=== PATIENT | female | born 1975 | race Caucasian/White ===

== ENCOUNTER 2022-04-02 17:40 | Emergency (ER) | payer BC, OTHER ==
[2022-04-02 17:49] VITALS: TEMP 98.3
--- NOTE | 2022-04-02 18:19 | ED ---
General Adult HPI - General Chief complaint: Neuro Symptoms/Deficit Stated complaint: facial droop Time Seen by Provider: 04/02/22 17:56 Source: patient, family, RN notes reviewed Mode of arrival: wheelchair Limitations: no limitations - History of Present Illness Initial comments: Patient is a pleasant 47-year-old female presenting to the emergency department with concern for right facial droop. Onset was last night. Patient has noticed progressively worsened since that time. Patient now having difficulty closing her right eye. Patient denies loss of sensation. No other area is affected. No history of similar symptoms previously. - Related Data Previous Rx's Medication Instructions Recorded predniSONE [Deltasone] 60 mg PO DAILY #21 tab 04/02/22 valACYclovir HCL [Valtrex] 1 tab PO TID #21 tablet 04/02/22 Allergies Allergy/AdvReac Type Severity Reaction Status Date / Time No Known Allergies Allergy Verified 03/22/15 17:57 Review of Systems ROS Statement: Those systems with pertinent positive or pertinent negative responses have been documented in the HPI. ROS Other: All systems not noted in ROS Statement are negative. Constitutional: Denies: fever Eyes: Reports: as per HPI. Denies: eye pain ENT: Denies: ear pain Respiratory: Denies: cough Cardiovascular: Denies: palpitations Endocrine: Denies: fatigue Gastrointestinal: Denies: abdominal pain Genitourinary: Denies: dysuria Neurological: Reports: as per HPI. Denies: headache, confusion Past Medical History Past Medical History: Diabetes Mellitus, Thyroid Disorder History of Any Multi-Drug Resistant Organisms: None Reported Past Surgical History: Section Past Psychological History: ADD/ADHD Past Alcohol Use History: None Reported Past Drug Use History: None Reported General Exam Limitations: no limitations General appearance: alert, in no apparent distress Head exam: Present: atraumatic, normocephalic Eye exam: Present: normal appearance, PERRL, EOMI, other (Difficulty closing right eyelid) ENT exam: Present: TM's normal bilaterally Neck exam: Present: normal inspection Respiratory exam: Present: normal lung sounds bilaterally Cardiovascular Exam: Present: regular rate, normal rhythm Expanded Peripheral pulses: 2+: Radial (R), Radial (L), Dorsalis Pedis (R), Dorsalis Pedis (L) GI/Abdominal exam: Present: soft. Absent: distended, tenderness Extremities exam: Present: normal inspection Neurological exam: Present: alert, oriented X3, CN II-XII intact. Absent: motor sensory deficit Expanded Neurological exam: Present: protecting the airway Speech: Present: fluid speech Cranial nerves: EOM's Intact: Normal, Facial Sensation: Normal Sensory exam: Upper Extremity Light Touch: Normal, Lower Extremity Light Touch: Normal Motor strength exam: RUE: 5, LUE: 5, RLE: 5 (Slightly limited secondary to chronic right groin pain), LLE: 5 Eye Response: (4) open spontaneously Motor Response: (6) obeys commands Verbal Response: (5) oriented Psychiatric exam: Present: normal affect, normal mood Skin exam: Present: normal color Course Vital Signs 04/02/22 17:43 Temperature 98.3 F Pulse Rate 81 Respiratory 18 Rate Blood Pressure 182/101 O2 Sat by Pulse 97 Oximetry EKG Findings - EKG Results: EKG: interpreted by KALEN, sinus rhythm, normal axis, normal QRS, normal ST/T Medical Decision Making - Medical Decision Making Was pt. sent in by a medical professional or institution (MAR[facility] FERNANDA Booth, CONTAINER FINISHER, urgent care, hospital, or penitentiary...) When possible be specific @ -No Did you speak to anyone other than the patient for history (EMS, parent, family, police, friend...)? What history was obtained from this source @ -Family is present and helps provide history of onset last night Did you review nursing and triage notes (agree or disagree)? Why? @ -I reviewed and agree with nursing and triage notes Were old charts reviewed (outside hosp., previous admission, EMS record, old EKG, old radiological studies, urgent care reports/EKG's, penitentiary records)? Report findings @ -No old charts were reviewed Differential Diagnosis (chest pain, altered mental status, abdominal pain women, abdominal pain men, vaginal bleeding, weakness, fever, dyspnea, syncope, headache, dizziness, GI bleed, back pain, seizure, CVA, palpatations, mental health)? @ -Differential Weakness: Hypoglycemia, shock, sepsis, hyponatremia, anemia, infection, WI, ETOH, adverse medicine reaction, overdose, stroke, this is not meant to be an all-inclusive list. EKG interpreted by me (3pts min.). @ -As above X-rays interpreted by me (1pt min.). @ -None done CT interpreted by me (1pt min.). @ -None done U/S interpreted by me (1pt. min.). @ -None done What testing was considered but not performed or refused? (CT, X-rays, U/S, labs)? Why? @ -Testing felt unlikely however patient was offered CT scanning she does refuse this. What meds were considered but not given or refused? Why? @ -None Did you discuss the management of the patient with other professionals (professionals i.e. , PA, CONTAINER FINISHER, lab, RT, psych nurse, home health care social worker, material handling crew supervisor, teacher, commissioned defence force officer, employment evaluator/case manager)? Give summary @ -No Was smoking cessation discussed for >3mins.? @ -No Was critical care preformed (if so, how long)? @ -No Were there social determinants of health that impacted care today? How? (Homelessness, low income, unemployed, alcoholism, drug addiction, transportation, low edu. Level, literacy, decrease access to med. care, prison, rehab)? @ -No Was there de-escalation of care discussed even if they declined (Discuss DNR or withdrawal of care, Hospice)? DNR status @ -No What co-morbidities impacted this encounter? (DM, HTN, Smoking, COPD, CAD, Cancer, CVA, ARF, Chemo, Hep., AIDS, mental health diagnosis, sleep apnea, morbid obesity)? @ -None Was patient admitted / discharged? Hospital course, mention meds given and route, prescriptions, significant lab abnormalities, going to OR and other pertinent info. @ -Patient made aware of diagnosis. Patient will have prescriptions sent to pharmacy. Undiagnosed new problem with uncertain prognosis? @ -No Drug Therapy requiring intensive monitoring for toxicity (Heparin, Nitro, In sulin, Cardizem)? @ -No Were any procedures done? @ -No Diagnosis/symptom? @ -Stoner's palsy Acute, or Chronic, or Acute on Chronic? @ -Acute Uncomplicated (without systemic symptoms) or Complicated (systemic symptoms)? @ -Uncomplicated at this time Side effects of treatment? @ -No Exacerbation, Progression, or Severe Exacerbation? @ -No Poses a threat to life or bodily function? How? (Chest pain, USA, WI, pneumonia, PE, COPD, DKA, ARF, appy, cholecystitis, CVA, Diverticulitis, Homicidal, Suicidal, threat to staff... and all critical care pts) @ -No Disposition Clinical Impression: Stoner's palsy Disposition: HOME SELF-CARE Condition: Stable Instructions (If sedation given, give patient instructions): Stoner Palsy (ED) Additional Instructions: Prescriptions have been sent to pharmacy. Please do follow-up to primary care physician in the next couple days for recheck. Use Lacri-Lube or similar agent to keep the right eye hydrated at least 4 times daily and prior to going to bed. Tape the right eyelid shut at nighttime. Return for other areas of weakness or concern. Prescriptions: predniSONE [Deltasone] 60 mg PO DAILY #21 tab valACYclovir HCL [Valtrex] 1 tab PO TID #21 tablet Is patient prescribed a controlled substance at d/c from ED?: No Referrals: Alden Gutierrez MD [STAFF PHYSICIAN] - 1-2 days Time of Disposition: 18:17
[2022-04-02 18:47] VITALS: BP 190/91; PULSE 79; RESP 15
== END 2022-04-02 19:01 | disposition home or self-care (01) ==
LOC: EC 17:40
DX: G51.0 Bell's palsy (principal); E11.9 Type 2 diabetes mellitus without complications; F90.9 Attention-deficit hyperactivity disorder, unspecified type
CPT/HCPCS: 93005; 99284

== ENCOUNTER 2022-06-27 22:33 | Emergency (ER) | payer OTHER ==
[2022-06-27 22:38] VITALS: TEMP 98.3
[2022-06-27] MEDS ORDERED: ORPHENADRINE 30 MG/ML 2 ML VIAL IM STA (22:45)
[2022-06-27] MEDS ORDERED: KETOROLAC 15 MG/ML 1 ML VIAL IM STA (22:45)
--- NOTE | 2022-06-27 22:45 | ED ---
Back Pain HPI - General Chief Complaint: Back Pain/Injury Stated Complaint: Back pain - pulled muscles Time Seen by Provider: 06/27/22 22:40 Source: patient, RN notes reviewed Limitations: no limitations - History of Present Illness Initial Comments: Patient is a 47-year-old female presenting to the emergency room with complaints of upper back pain primarily between her shoulder blades. She reports that symptom has been ongoing for approximately 1 week and getting worse. She reports injury to her right inguinal area which is being evaluated by her new primary care provider for orthopedic referral soon; she reports that due to this injury she has been utilizing a walker to ambulate and believes that she may have strained her back muscles while utilizing her walker. She denies any trauma or known injury. She reports the pain is primarily perispinal in the thoracic region made worse by movement. Massage does help at times. She reports having Tylenol 3's for her inguinal pain and utilizing these however she no longer has any of that medication. She has not tried any other medications to help with her symptoms. She denies any numbness and tingling in her upper extremities, range of motion impairment not directly related to pain or upper extremity weakness. She has a past medical history significant for diabetes and hypothyroidism. - Related Data Previous Rx's Medication Instructions Recorded predniSONE [Deltasone] 60 mg PO DAILY #21 tab 04/02/22 valACYclovir HCL [Valtrex] 1 tab PO TID #21 tablet 04/02/22 Amoxicillin 875 mg PO Q12HR #14 tablet 05/09/22 Cyclobenzaprine [Flexeril] 10 mg PO HS PRN #7 tab 05/09/22 Ibuprofen [Motrin] 800 mg PO Q8HR PRN #30 tab 05/09/22 Cyclobenzaprine HCl 10 mg PO TID PRN 7 Days #21 tab 06/27/22 Ibuprofen [Motrin] 800 mg PO Q8H PRN 7 Days #21 tab 06/27/22 Allergies Allergy/AdvReac Type Severity Reaction Status Date / Time No Known Allergies Allergy Verified 06/27/22 22:35 Review of Systems ROS Statement: Those systems with pertinent positive or pertinent negative responses have been documented in the HPI. ROS Other: All systems not noted in ROS Statement are negative. Past Medical History Past Medical History: Diabetes Mellitus, Thyroid Disorder History of Any Multi-Drug Resistant Organisms: None Reported Past Surgical History: Section Past Psychological History: ADD/ADHD Smoking Status: Never smoker Past Alcohol Use History: None Reported Past Drug Use History: None Reported General Exam - General Exam Comments Initial Comments: GENERAL: No acute distress, well developed, well nourished. Obese. HEENT: Normocephalic, atraumatic. Pupils equal, round, reactive to light. Moist mucous membranes. LUNGS: No respiratory distress or use of accessory muscles. HEART: Regular rate.. ABDOMEN: Non-distended. BACK: Normal inspection. Paraspinal spasm noted in the thoracic region and subscapular to right side. No range of motion impairment. EXTREMITIES: No edema. No tenderness. Moves all extremities. NEUROLOGIC: Alert & oriented x 3. CN II-XII grossly intact. PSYCHIATRIC: Normal affect and behavior. DERMATOLOGIC: Skin intact, without rashes or lesions noted. Limitations: no limitations Course Vital Signs 06/27/22 22:35 Temperature 98.3 F Pulse Rate 81 Respiratory 18 Rate Blood Pressure 172/85 O2 Sat by Pulse 97 Oximetry Medical Decision Making - Medical Decision Making Was pt. sent in by a medical professional or institution (, PA, TUBE REBUILDER, urgent care, hospital, or assisted...) When possible be specific @ -No Did you speak to anyone other than the patient for history (EMS, parent, family, police, friend...)? What history was obtained from this source @ -No Did you review nursing and triage notes (agree or disagree)? Why? @ -I reviewed and agree with nursing and triage notes except pain primarily to mid upper back. Were old charts reviewed (outside hosp., previous admission, EMS record, old EKG, old radiological studies, urgent care reports/EKG's, assisted records)? Report findings @ -No old charts were reviewed Differential Diagnosis (chest pain, altered mental status, abdominal pain women, abdominal pain men, vaginal bleeding, weakness, fever, dyspnea, syncope, headache, dizziness, GI bleed, back pain, seizure, CVA, palpatations, mental health, musculoskeletal)? @ -Differential Back Pain: Strain, zoster, cauda equina syndrome, epidural abscess, vertebral osteomyelitis, discitis, fracture, subluxation, disc herniation, DJD, spinal stenosis, dissection, AAA, pancreatitis, peptic ulcer disease, pyelonephritis, kidney stone, this is not meant to be an all-inclusive list. EKG interpreted by me (3pts min.). @ -None done X-rays interpreted by me (1pt min.). @ -None done CT interpreted by me (1pt min.). @ -None done U/S interpreted by me (1pt. min.). @ -None done What testing was considered but not performed or refused? (CT, X-rays, U/S, labs)? Why? @ -None What meds were considered but not given or refused? Why? @ -None Did you discuss the management of the patient with other professionals (professionals i.e. , PA, TUBE REBUILDER, lab, RT, psych nurse, geriatric social worker, customer service representative teller, teacher, appeals officer, spring encaser)? Give summary @ -No Was smoking cessation discussed for >3mins.? @ -No Was critical care preformed (if so, how long)? @ -No Were there social determinants of health that impacted care today? How? (Homelessness, low income, unemployed, alcoholism, drug addiction, transportation, low edu. Level, literacy, decrease access to med. care, care home, rehab)? @ -No Was there de-escalation of care discussed even if they declined (Discuss DNR or withdrawal of care, Hospice)? DNR status @ -No What co-morbidities impacted this encounter? (DM, HTN, Smoking, COPD, CAD, Cancer, CVA, ARF, Chemo, Hep., AIDS, mental health diagnosis, sleep apnea, morbid obesity)? @ -None Was patient admitted / discharged? Hospital course, mention meds given and route, prescriptions, significant lab abnormalities, going to OR and other pertinent info. @ -47-year-old female presenting to the emergency room with complaints of upper mid back pain ongoing for approximately 1 week without any known trauma. She is utilizing her upper extremities to bear weight with a walker due to injury to her right inguinal region. Paraspinal spasms noted on exam. No trauma indicating need for diagnostic imaging or laboratory studies. No radiculopathy. Will give muscle relaxer and Toradol and monitor response. Slight improvement in symptoms with Toradol and muscle relaxer. An increased pain again will give IM morphine. Despite pain no indication for further workup at this time. Will discharge home with muscle relaxer and Tylenol 3 starter pack. Advised to keep upcoming appointment with primary care provider for referral to orthopedist. Range of motion as tolerated encouraged. Questions and concerns answered. Return parameters to the emergency room discussed. Will discharge home in stable condition on muscle relaxer and analgesics to treat upper back pain advising follow-up with primary care provider. Undiagnosed new problem with uncertain prognosis? @ -No Drug Therapy requiring intensive monitoring for toxicity (Heparin, Nitro, Insulin, Cardizem)? @ -No Were any procedures done? @ -No Diagnosis/symptom? @ -Upper back pain Acute, or Chronic, or Acute on Chronic? @ -Acute Uncomplicated (without systemic symptoms) or Complicated (systemic symptoms)? @ -Uncomplicated Side effects of treatment? @ -No Exacerbation, Progression, or Severe Exacerbation? @ -No Poses a threat to life or bodily function? How? (Chest pain, [place], [place], pneumonia, PE, COPD, DKA, ARF, appy, cholecystitis, CVA, Diverticulitis, Homicidal, Suicidal, threat to staff... and all critical care pts) @ -No Case discussed with Dr. Arnett Disposition Clinical Impression: Thoracic back pain Disposition: HOME SELF-CARE Condition: Stable Instructions (If sedation given, give patient instructions): Back Pain (ED) Additional Instructions: Please utilize muscle relaxer along with Tylenol 3 starter pack alternating with ibuprofen prescription as needed for pain. Do not drive or operate machinery until you know how muscle relaxer and Tylenol 3's will affect to. Avoid taking sedative medication at the same time. Range of motion as tolerated encouraged. Please keep your upcoming appointment with your primary care provider as scheduled. Application of heat or ice and 20 minute increments every 2-3 hours may help with pain. Please return to the Emergency Department if symptoms worsen or any other concerns. Prescriptions: Cyclobenzaprine HCl 10 mg PO TID PRN 7 Days #21 tab PRN Reason: Spasms Ibuprofen [Motrin] 800 mg PO Q8H PRN 7 Days #21 tab PRN Reason: Pain Is patient prescribed a controlled substance at d/c from ED?: No Referrals: Vance Machuca MD [Primary Care Provider] - 1-2 days Time of Disposition: 23:37
[2022-06-27] MEDS ORDERED: ACET/COD 300 MG/30 MG STARTER PACK 6 TAB BTL PO STA (23:34)
[2022-06-27] MEDS ORDERED: MORPHINE SULFATE 4 MG/ML SYRINGE IM STA (23:54)
[2022-06-28 00:15] VITALS: BP 150/87; PULSE 64; RESP 17
== END 2022-06-28 00:19 | disposition home or self-care (01) ==
LOC: EC 22:33
DX: M54.6 Pain in thoracic spine (principal); E11.9 Type 2 diabetes mellitus without complications
CPT/HCPCS: 99283; 96372 ×3; J2360; J1885

== ENCOUNTER → 2022-07-31 | Outpatient (CLI) | payer OTHER ==
--- NOTE | 2022-07-31 16:14 | XR ---
EXAMINATION TYPE: XR spine complete AP and Lat DATE OF EXAM: 07/31/2022 4:05 PM INDICATION: Patient age:Female; 47 years old; Reason for study: M54.31 M25.551; [facility]. COMPARISON: Thoracic spine radiograph 03/23/2015 TECHNIQUE: AP and lateral views of the cervical, thoracic, and lumbar spine are obtained. Additional swimmer's view of the cervical thoracic spine and odontoid view were obtained. FINDINGS: No evidence of any acute osseous pathology. No evidence of loss of vertebral body height i s seen. There is normal alignment of the spine. Mild anterior osteophytosis of the midthoracic spine. The odontoid appears intact. Soft tissues are within normal limits. Pedicles are intact. IMPRESSION: 1. No acute process. 2. Minimal degenerative changes as described above.
--- NOTE | 2022-07-31 16:18 | XR ---
EXAMINATION TYPE: XR Hip Complete RT DATE OF EXAM: 07/31/2022 4:05 PM INDICATION: Patient age:Female; 47 years old; Reason for study: M54.31 M25.551; [facility]. COMPARISON: Right hip radiograph 03/23/2015 TECHNIQUE: The right hip was examined in the frontal and lateral projections and a AP pelvis. FINDINGS/IMPRESSION: Abnormal appearance of the proximal humerus with heterogenous lytic appearance a nd age indeterminant nondisplaced fracture of the proximal humeral neck. No dislocation. No soft tiss ue edema. Consider further evaluation with CT.
== END | disposition home or self-care (01) ==
LOC: RADXRMAIN 14:58
PROVIDERS: ATTEND Family Medicine
DX: M54.31 Sciatica, right side (principal); M25.551 Pain in right hip
CPT/HCPCS: 72082; 73502

== ENCOUNTER 2022-08-01 18:06 | Inpatient (IN) | payer OTHER ==
--- NOTE | 2022-08-01 19:36 | ED ---
Lower Extremity Injury HPI - General Source: patient, RN notes reviewed Mode of arrival: wheelchair <GenetRaheelMeron - Last Filed: 08/01/22 19:35> <Chichi Fitzpatrick - Last Filed: 08/02/22 05:02> - General Chief Complaint: Extremity Injury, Lower Stated Complaint: R hip fracture sent by Dr Lynch Seen by Provider: 08/01/22 21:16 - History of Present Illness Initial Comments: Patient is a 47-year-old female who presents to the emergency department for possible right hip fracture. Patient has had right groin pain since January and had outpatient x-rays yesterday. She was called today stating her right hip is fractured. She was told to the emergency department. She cannot recall any specific injury. (GenetMeron) 47-year-old female with past medical history of diabetes and thyroid disorder who presents to the emergency department reporting right hip pain. States for the past several months she has been having mid thoracic back pain as well as right hip pain. She has not had any primary care due to lack of insurance. He recently just saw a primary care physician who recommended x-rays of the hip. Patient was here yesterday for these studies to be done on an outpatient basis. She received a call today stating that she had a hip fracture needed to come back to the hospital. Patient denies any trauma. No numbness, tingling or weakness in the leg. She does admit some mid thoracic back pain which has been persistent for the past 2 months. She denies history of cancer. Upon further questioning the patient does admit to a mass in her right breast which she has not mentioned to her primary care doctor. She denies any nausea or vomiting. No headaches or visual changes. 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 No fevers. No other alleviating, precipitating or modifying factors (Chichi Fitzpatrick) - Related Data Previous Rx's Medication Instructions Recorded predniSONE [Deltasone] 60 mg PO DAILY #21 tab 04/02/22 valACYclovir HCL [Valtrex] 1 tab PO TID #21 tablet 04/02/22 Amoxicillin 875 mg PO Q12HR #14 tablet 05/09/22 Cyclobenzaprine [Flexeril] 10 mg PO HS PRN #7 tab 05/09/22 Ibuprofen [Motrin] 800 mg PO Q8HR PRN #30 tab 05/09/22 Cyclobenzaprine HCl 10 mg PO TID PRN 7 Days #21 tab 06/27/22 Ibuprofen [Motrin] 800 mg PO Q8H PRN 7 Days #21 tab 06/27/22 Allergies Allergy/AdvReac Type Severity Reaction Status Date / Time No Known Allergies Allergy Verified 06/27/22 22:35 Review of Systems ROS Other: All systems not noted in ROS Statement are negative. <GenetMeron - Last Filed: 08/01/22 19:35> ROS Other: All systems not noted in ROS Statement are negative. <Chichi Fitzpatrick - Last Filed: 08/02/22 05:02> ROS Statement: Those systems with pertinent positive or pertinent negative responses have been documented in the HPI. Past Medical History Past Medical History: Diabetes Mellitus, Thyroid Disorder History of Any Multi-Drug Resistant Organisms: None Reported Past Surgical History: Section Past Psychological History: ADD/ADHD Smoking Status: Never smoker Past Alcohol Use History: None Reported Past Drug Use History: None Reported <GenetMeron - Last Filed: 08/01/22 19:35> General Exam <GenetMeron - Last Filed: 08/01/22 19:35> General appearance: alert, in no apparent distress Head exam: Present: atraumatic, normocephalic, normal inspection Eye exam: Present: other (Right facial droop) Neck exam: Present: normal inspection. Absent: tenderness, meningismus, lymphadenopathy Respiratory exam: Present: normal lung sounds bilaterally. Absent: respiratory distress, wheezes, rales, rhonchi, stridor Cardiovascular Exam: Present: regular rate, normal rhythm, normal heart sounds. Absent: systolic murmur, diastolic murmur, rubs, gallop, clicks GI/Abdominal exam: Present: soft, normal bowel sounds. Absent: distended, tenderness, guarding, rebound, rigid Extremities exam: Present: full ROM, normal capillary refill, pedal edema. Absent: tenderness, joint swelling, calf tenderness Neurological exam: Present: other (Right-sided facial droop involving upper and lower face) Psychiatric exam: Present: normal affect, normal mood Skin exam: Present: other (Large, indurated breast mass on the right. Enlarged axillary lymph nodes in the right.) <Chichi Fitzpatrick A - Last Filed: 08/02/22 05:02> - General Exam Comments Initial Comments: Visual Physical Exam Vital signs reviewed General: Well-appearing, nontoxic, no acute distress. Head: Normocephalic, atraumatic Eyes: PERRLA, EOMI ENT: Airway patent Chest: Nonlabored breathing Skin: No visual rash, normal skin tone Neuro: Alert and oriented 3 Musculoskeletal: No gross abnormalities (Meron De León) Course Vital Signs 08/01/22 08/01/22 08/02/22 18:54 22:37 00:20 Temperature 98.2 F Pulse Rate 77 73 73 Respiratory 18 18 18 Rate Blood Pressure 173/77 149/72 157/83 O2 Sat by Pulse 97 94 L 97 Oximetry 08/02/22 02:31 Temperature Pulse Rate 65 Respiratory 18 Rate Blood Pressure 161/73 O2 Sat by Pulse 95 Oximetry Medical Decision Making - Lab Data Result diagrams: 08/01/22 22:32 08/01/22 22:32 <Chichi Fitzpatrick A - Last Filed: 08/02/22 05:02> - Medical Decision Making Was pt. sent in by a medical professional or institution (, PA, AD TERMINAL MAKEUP OPERATOR, urgent care, hospital, or alf...) When possible be specific @ -Dr. Machuca sent the patient in yesterday for a hip x-ray Did you speak to anyone other than the patient for history (EMS, parent, family, police, friend...)? What history was obtained from this source @ -I spoke with the patient's daughter who is in the room and admits that the patient has been having declining symptoms over the past several months Did you review nursing and triage notes (agree or disagree)? Why? @ -I reviewed and agree with nursing and triage notes Were old charts reviewed (outside hosp., previous admission, EMS record, old EKG, old radiological studies, urgent care reports/EKG's, alf records)? Report findings @ -I reviewed the patient's x-ray from yesterday Differential Diagnosis (chest pain, altered mental status, abdominal pain women, abdominal pain men, vaginal bleeding, weakness, fever, dyspnea, syncope, headache, dizziness, GI bleed, back pain, seizure, CVA, palpatations, mental health, musculoskeletal)? @ -Differential Musculoskeletal Muscular strain, contusion, ligament sprain, fracture, arthritis, septic arthritis, bursitis, cellulitis, muscle spasm, nerve compression, DVT, arterial occlusion, herpes zoster, electrolyte abnormality, tumor.... This is not meant to be in all inclusive list EKG interpreted by me (3pts min.). @ -EKG not performed X-rays interpreted by me (1pt min.). @ -X-ray not performed at this visit CT interpreted by me (1pt min.). @ -CT of the brain and cervical spine is interpreted by me with no acute findings. CT chest abdomen and pelvis interpreted by me which demonstrates right breast mass with several areas of metastatic disease U/S interpreted by me (1pt. min.). @ -None done What testing was considered but not performed or refused? (CT, X-rays, U/S, labs)? Why? @ -None What meds were considered but not given or refused? Why? @ -None Did you discuss the management of the patient with other professionals (professionals i.e. , PA, AD TERMINAL MAKEUP OPERATOR, lab, RT, psych nurse, social media coordinator, photonics engineering technologist, teacher, infantry officer, embedded case manager)? Give summary @ -Discussed case with Dr. Castillo who states that the patient can stay at our facility if she has a pathologic fracture from a metastatic cancer. Also spoke with Lachelle from the [facility] who agreed to admit the patient Was smoking cessation discussed for >3mins.? @ -No Was critical care preformed (if so, how long)? @ -No Were there social determinants of health that impacted care today? How? (Homelessness, low income, unemployed, alcoholism, drug addiction, transportatio n, low edu. Level, literacy, decrease access to med. care, usp, rehab)? @ -Patient did not have health insurance and therefore she did not seek care for her back pain and breast mass Was there de-escalation of care discussed even if they declined (Discuss DNR or withdrawal of care, Hospice)? DNR status @ -No What co-morbidities impacted this encounter? (DM, HTN, Smoking, COPD, CAD, Cancer, CVA, ARF, Chemo, Hep., AIDS, mental health diagnosis, sleep apnea, morbid obesity)? @ -Diabetes Was patient admitted / discharged? Hospital course, mention meds given and route, prescriptions, significant lab abnormalities, going to OR and other pertinent info. @ -Arrival patient was placed into room 28. A thorough history and physical exam was performed. Patient already had a CT performed prior to my evaluation of the patient. CT does demonstrate a pathologic fracture. I questioned the patient in regards to possible source of cancer and she does admit to a large right-sided breast mastectomy. She has not mentioned this to primary care. IV is established and she is given pain medications. Patient sent back for CT of her chest abdomen and pelvis as well as her brain and cervical spine. Patient does have several findings to include concerning right breast mass, several rib fractures, T3 spinous fracture with metastatic disease to the lungs and bones. This is discussed with the patient. Spoke with Dr. Castillo who states the patient can be cared for by the orthopedic associates for the pathologic fracture as long as it is not a primary bone malignancy. Patient admitted to [facility] - spoke with Lachelle for admission Undiagnosed new problem with uncertain prognosis? @ -Yes Drug Therapy requiring intensive monitoring for toxicity (Heparin, Nitro, Insulin, Cardizem)? @ -No Were any procedures done? @ -No Diagnosis/symptom? @ -Acute pathologic fracture right hip, suspected right breast cancer with meta stasis to lung/bone/lymph nodes/spine Acute, or Chronic, or Acute on Chronic? @ -Acute Uncomplicated (without systemic symptoms) or Complicated (systemic symptoms)? @ -Complicated Side effects of treatment? @ -No Exacerbation, Progression, or Severe Exacerbation? @ -No Poses a threat to life or bodily function? How? (Chest pain, [place], [place], pneumonia, PE, COPD, DKA, ARF, appy, cholecystitis, CVA, Diverticulitis, Homicidal, Suicid al, threat to staff... and all critical care pts) @ -Yes unfortunately patient may succumb to diagnosis (Chichi Fitzpatrick) - Lab Data Lab Results 08/01/22 08/01/22 08/02/22 Range/Units 22:32 22:32 00:16 WBC 4.0 (3.8-10.6) k/uL RBC 3.40 L (3.80-5.40) m/uL Hgb 9.7 L (11.4-16.0) gm/dL Hct 28.7 L (34.0-46.0) % MCV 84.4 (80.0-100.0) fL MCH 28.6 (25.0-35.0) pg MCHC 33.8 (31.0-37.0) g/dL RDW 17.5 H (11.5-15.5) % Plt Count 181 (150-450) k/uL MPV 7.3 Neutrophils % 59 % Lymphocytes % 30 % Monocytes % 6 % Eosinophils % 2 % Basophils % 1 % Neutrophils # 2.4 (1.3-7.7) k/uL Lymphocytes # 1.2 (1.0-4.8) k/uL Monocytes # 0.2 (0-1.0) k/uL Eosinophils # 0.1 (0-0.7) k/uL Basophils # 0.0 (0-0.2) k/uL Anisocytosis Slight Sodium 138 (137-145) mmol/L Potassium 3.2 L (3.5-5.1) mmol/L Chloride 110 H (98-107) mmol/L Carbon Dioxide 20 L (22-30) mmol/L Anion Gap 8 mmol/L BUN 13 (7-17) mg/dL Creatinine 0.37 L (0.52-1.04) mg/dL Est GFR (CKD-EPI)AfAm >90 (>60 ml/min/1.73 sqM) Est GFR (CKD-EPI)NonAf >90 (>60 ml/min/1.73 sqM) Glucose 69 L (74-99) mg/dL POC Glucose (mg/dL) 90 (70-110) mg/dL POC Glu Blueprinter ID Migel Gonzalez Calcium 7.3 L (8.4-10.2) mg/dL Total Bilirubin 0.6 (0.2-1.3) mg/dL AST 73 H (14-36) U/L ALT 94 H (4-34) U/L Alkaline Phosphatase 179 H (38-126) U/L Total Protein 5.3 L (6.3-8.2) g/dL Albumin 2.7 L (3.5-5.0) g/dL Disposition <Meron DeL eón - Last Filed: 08/01/22 19:35> Is patient prescribed a controlled substance at d/c from ED?: No Time of Disposition: 01:31 Decision to Admit Reason: Admit from EC Decision Date: 08/02/22 Decision Time: : <Chichi Fitzpatrick - Last Filed: 08/02/22 05:02> Clinical Impression: Fracture of right hip, Breast cancer, Pleural effusion, Metastasis to bone Disposition: ADMITTED IP TO THIS [facility] Condition: Serious
--- NOTE | 2022-08-01 20:16 | CT ---
EXAMINATION TYPE: CT hip RT wo con CT DLP: 1995.6 mGycm, Automated exposure control for dose reduction was used. DATE OF EXAM: 08/01/2022 7:58 PM COMPARISON: Extremity radiograph 07/31/2022 CLINICAL INDICATION:Female, 47 years old with history of fracture on xray; , Fx of RT hip found on pr ior X-ray done on 07-31-22. TECHNIQUE: Axial images were obtained of the right hip . Additional coronal and sagittal reformatted images and soft tissue and bone window were obtained for review. 3-D reconstruction was created on a separate workstation. Contrast used: None Oral contrast used: None FINDINGS: Evaluation of the osseous structures is limited given heterogenous appearance. There is fracture thro ugh the right femoral neck with minimal displacement and varus deformity. There is lucency through th is region suggesting pathologic fracture. Evaluation of the remainder of the osseous structures somew hat limited given the heterogenous appearance no obvious additional fracture visualized. Soft tissues are grossly unremarkable. As well as portions of the abdomen and pelvis are unremarkable. IMPRESSION: 1. Acute pathologic fracture of the proximal right femur basicervical portion of the femoral neck. M ultiple lucencies are seen through the fracture site. Slight varus angulation. 2. Diffuse heterogenous osseous appearance correlate with history of malignancy.
[2022-08-01] MEDS ORDERED: ONDANSETRON 4 MG/2 ML VIAL IVP STA (21:44)
[2022-08-01] MEDS ORDERED: HYDROmorphone 1 MG/ML 1 ML SYRINGE IVP STA (21:44)
[2022-08-01] MEDS: SODIUM CHLORIDE 0.9% 1,000 ML IV SCH (22:36)
[2022-08-01 22:49] LABS: Anisocytosis Slight; Basophils % (A) 1 %; Eosinophils # (A) 0.1 k/uL (0-0.7); Eosinophils % (A) 2 %; HCT 28.7 % (34.0-46.0); HGB 9.7 gm/dL (11.4-16.0); Lymphocytes # (A) 1.2 k/uL (1.0-4.8); Lymphocytes % (A) 30 %; MCH 28.6 pg (25.0-35.0); MCHC 33.8 g/dL (31.0-37.0); MCV 84.4 fL (80.0-100.0); Mean Platelet Volume 7.3; Monocytes # (A) 0.2 k/uL (0-1.0); Monocytes % (A) 6 %; Neutrophils # (A) 2.4 k/uL (1.3-7.7); Neutrophils % (A) 59 %; Platelet Count 181 k/uL (150-450); RDW 17.5 % (11.5-15.5)
[2022-08-01 22:59] LABS: ALT 94 U/L (4-34); AST 73 U/L (14-36); African American GFR (CKD) >90 (>60 ml/min/1.73 sqM); Albumin 2.7 g/dL (3.5-5.0); Alkaline Phosphatase 179 U/L (38-126); Anion Gap 8 mmol/L; Blood Urea Nitrogen 13 mg/dL (7-17); Calcium 7.3 mg/dL (8.4-10.2); Carbon Dioxide 20 mmol/L (22-30); Chloride 110 mmol/L (98-107); Glucose 69 mg/dL (74-99); Non-African American GFR(CKD) >90 (>60 ml/min/1.73 sqM); Potassium 3.2 mmol/L (3.5-5.1); Sodium 138 mmol/L (137-145); Total Bilirubin 0.6 mg/dL (0.2-1.3); Total Protein 5.3 g/dL (6.3-8.2)
[2022-08-01] MEDS ORDERED: DEXTROSE 50% SYRINGE 50 ML IVP STA (23:06)
--- NOTE | 2022-08-02 00:15 | CT ---
EXAMINATION TYPE: CT ChestAbdPelvis w con CT DLP: 3683.4 mGycm, Automated exposure control for dose reduction was used. DATE OF EXAM: 08/01/2022 11:57 PM COMPARISON: The right hip same day. CLINICAL INDICATION:Female, 47 years old with history of suspected metastatic cancer, breast primary? ;, PT HAS RT HIP FX. POSSIBLE METS. NO H/O CANCER. Technique: Multiple axial images of the chest, abdomen, and pelvis were obtained. Two-dimensional cor onal and sagittal reconstructions were obtained. Contrast used:100 mL of Isovue 300 with IV Contrast, Oral contrast used: without Oral Contrast Findings: CHEST: LUNGS/ PLEURA: Bilateral pleural effusions right greater left. There are scattered pulmonary nodules measuring up to 8 mm in the lower lobes bilaterally. No pneumothorax or focal consolidation. The hear t is mildly enlarged for size. Pleural thickening noted on series 201 image 34. AIRWAY: Patent and unremarkable. HEART: Size within normal limits. MEDIASTINUM: Right epicardial fat lymph nodes measuring up to 13 mm in short axis. VASCULATURE: No aortic aneurysm. SOFT TISSUES/LYMPH NODES: * Large right breast mass with possible areas of central necrosis measuring up to 6.9 x 6.2 x 5.8 cm skin thickening of the right breast measuring up to 10 mm in thickness. * Right axillary enlarged lymph node measuring 18 x 33 mm. * Right supraclavicular lymph nodes measuring up to 9 mm in short axis. * Right internal mammary lymph node measuring 7 mm series 202 image 50. LOWER NECK: No significant findings. ABDOMEN: ABDOMEN LIVER: Unremarkable GALLBLADDER AND BILE DUCTS: Unremarkable. PANCREAS: Unremarkable. SPLEEN: Unremarkable. ADRENAL GLANDS: Unremarkable. KIDNEYS AND URETERS: No evidence of hydronephrosis or renal calculus. The ureters are unremarkable. PELVIS BLADDER: Unremarkable REPRODUCTIVE: Ovaries within normal limits. Left ovarian cyst measuring 37 x 24 mm. ABDOMEN & PELVIS STOMACH AND BOWEL: No evidence of bowel obstruction. PERITONEUM: No evidence of pneumoperitoneum or free fluid. VASCULATURE: No evidence of aortic aneurysm. LYMPH NODES: No gross evidence for lymphadenopathy. SOFT TISSUE/ABDOMINAL WALL: Unremarkable MUSCULOSKELETAL: There is diffuse heterogenous appearance of the osseous structures most pronounced i n the spine but also affecting the extremities, pelvic girdle, ribs, sternum. There is a T3 vertebrae posterior elements fracture best appreciated on series 202 image 106 without significant displacemen t. No significant retropulsion on this limited exam.. Pathologic right hip fracture seen on CT same d ay. Not significantly changed from that exam. Possible left rib 7 and lateral subcutaneous fracture. Right rib posterior 7-8 fractures. Spine demonstrates scattered lytic and sclerosis as well as the pe lvis. The right rib 6 and 7 demonstrate increased soft tissue around the lateral aspect of the ribs w ith some osseous erosion of the cortices. IMPRESSION: 1. Findings compatible with right breast malignancy with diffuse metastatic disease to both the righ t lower neck, right axilla, probable right breast lymphatics, diffuse osseous metastatic disease, kvng ateral pleural effusions suspicious for pleural metastatic disease and scattered pulmonary nodules luciano spicious for metastatic disease. 2. Fracture through the T3 posterior spinous process fracture 3. Pathologic fracture of the right proximal femur as seen on same day CT. 4. Suspected left rib 7 and right rib 7 and 8 fractures which may be subacute. 5. Left ovarian cyst measuring 37 x 24 mm.
--- NOTE | 2022-08-02 00:15 | CT ---
EXAMINATION TYPE: CT brain cspine wo con CT DLP: 2119 mGycm, Automated exposure control for dose reduction was used. DATE OF EXAM: 08/01/2022 11:45 PM COMPARISON: CT chest abdomen pelvis same day. CLINICAL INDICATION:Female, 47 years old with history of suspected metastatic cancer, breast primary? ; PT HAS RT HIP FX, SENT BY DR TO ER. SUSPECTED METS? TECHNIQUE: Brain: Multiple axial CT images of the brain were obtained without IV contrast. Cspine: Axial CT images from the skull base to the inferior aspect of T2 we obtained without intraven ous contrast. Coronal and sagittal reformatted images were also reviewed. FINDINGS: Brain: Extra-axial spaces: No abnormal extra-axial fluid collections. Ventricular system: Within normal limits Cerebral parenchyma: No acute intraparenchymal hemorrhage or mass effect. The chavez-white junction is well differentiated. Cerebellum: Unremarkable. Mass effect: No evidence of midline shift. Intracranial vasculature: unremarkable Soft tissues: Normal. Calvarium/osseous structures: No depressed skull fracture. Heterogenous appearance to portions of the skull base osseous structures most pronounced in the right clivus. Paranasal sinuses and mastoid air cells: Clear. Visualized orbits: Orbital contents are intact. Cervical spine: Fracture: lucency through the T3 posterior elements series 304 image 35 and series 303 image 47. Osseous structures: Heterogenous appearance to the osseous structures are sclerosis throughout. Unrem arkable Vertebral alignment: Within normal limits. Spinal canal/Neural Foramina: No evidence of significant spinal canal narrowing. No evidence for sign ificant neural foraminal stenosis. Neck soft tissues: a right supraclavicular lymph node measuring up to 12 mm in short axis. Other: The airway is patent. The lung apices are clear. Atherosclerosis of the right carotid bifurcat ion. IMPRESSION: 1. No acute intracranial process. Further evaluation with MRI may be warranted. Given the appearance of the osseous structures. 2. T3 posterior element fracture with minimal displacement. 3. Diffuse heterogenous appearance to the osseous structures clinical correlation for history of mal ignancy is advised. 4. Mild multilevel degenerative disc disease. 5. Right lower neck lymphadenopathy as seen on same day CT chest abdomen pelvis findings compatible with metastatic disease of the right breast.
[2022-08-02 00:19] LABS: Glucose,Whole Blood 90 mg/dL (70-110)
[2022-08-02] MEDS ORDERED: NALOXONE 0.4 MG/ML 1 ML VIAL IV PRN (01:31)
[2022-08-02] MEDS ORDERED: ACETAMINOPHEN TAB 325 MG TAB PO PRN (01:31)
[2022-08-02] MEDS ORDERED: ONDANSETRON 4 MG/2 ML VIAL IVP PRN (01:31)
[2022-08-02] MEDS ORDERED: IBUPROFEN 400 MG TAB PO PRN (01:31)
[2022-08-02] MEDS: SODIUM CHLORIDE 0.9% 1,000 ML IV SCH ×5 (02:26→18:20)
[2022-08-02] MEDS: HYDROmorphone 1 MG/ML 1 ML SYRINGE IVP PRN ×5 (02:41→20:57)
--- NOTE | 2022-08-02 03:34 | P.HPIM ---
History of Present Illness H&P Date: 08/02/22 Chief Complaint: right hip pain 47 year old female no significant past medical history patient coming in due to abnormal xray findings of right hip fracture. patient does not recall injury or fall. however, she has been having difficulties with walking and pain in the right hip since December of 2021. she had no insurance and was only able to get limited testing done, she had some imaging done initially back in January of 2022 and was told she had some type of arthritis. then later presented with symptoms of right sided bells palsy in Mar 2022, then later noticed a breast mass but was told she had to follow up with a PCP for further testing and cancer screening. the past couple weeks , was challenging regarding mobility and breathing , as she started noticing lower chest pain with deep breaths or when she changes position from sitting to standing. otherwise denies any nipple discharge or bleeding, denies any injuries or falls. she denies any smoking. patient has family history of stomach cancer in her mom. Review of Systems Pertinent positives as noted in HPI. All other systems were reviewed and are negative Past Medical History Past Medical History: Diabetes Mellitus, Thyroid Disorder History of Any Multi-Drug Resistant Organisms: None Reported Past Surgical History: Section Past Psychological History: ADD/ADHD Smoking Status: Never smoker Past Alcohol Use History: None Reported Past Drug Use History: None Reported Medications and Allergies Home Medications Medication Instructions Recorded Confirmed Type predniSONE [Deltasone] 60 mg PO DAILY #21 tab 04/02/22 Rx valACYclovir HCL [Valtrex] 1 tab PO TID #21 tablet 04/02/22 Rx Amoxicillin 875 mg PO Q12HR #14 tablet 05/09/22 Rx Cyclobenzaprine [Flexeril] 10 mg PO HS PRN #7 tab 05/09/22 Rx Ibuprofen [Motrin] 800 mg PO Q8HR PRN #30 tab 05/09/22 Rx Cyclobenzaprine HCl 10 mg PO TID PRN 7 Days #21 tab 06/27/22 Rx Ibuprofen [Motrin] 800 mg PO Q8H PRN 7 Days #21 tab 06/27/22 Rx Allergies Allergy/AdvReac Type Severity Reaction Status Date / Time No Known Allergies Allergy Verified 06/27/22 22:35 Physical Exam Vitals: Vital Signs Temp Pulse Resp BP Pulse Ox 08/02/22 02:31 65 18 161/73 95 08/02/22 00:20 73 18 157/83 97 08/01/22 22:37 73 18 149/72 94 L 08/01/22 18:54 98.2 F 77 18 173/77 97 Intake and Output 08/01/22 08/01/22 08/02/22 14:59 22:59 06:59 Other: Weight 147.418 kg Constitutional: No acute distress, looking sad, tearful. Eyes: Anicteric sclerae, moist conjunctiva, Pupils equal round reactive to light ENMT: NC/AT Oropharynx clear, no erythema, or exudates Neck: Supple, no masses, or JVD No carotid bruits No thyromegaly Lungs: Clear to auscultation Clear to percussion Normal respiratory effort, no accessory muscle use Cardiovascular: Heart regular in rate and rhythm, No murmurs, gallops, or rubs No peripheral edema Abdominal: Soft Nontender, no guarding, rebound or rigidity Abdomen moving with respiration Normoactive bowel sounds No hepatomegaly, No splenomegaly No palpable mass Skin: Normal temperature, tone, texture, turgor Extremities: No digital cyanosis No clubbing Pedal pulses intact and symmetrical Radial pulses intact and symmetrical No calf tenderness Psychiatric: Alert and oriented to person, place and time Appropriate affect fair judgment Neuro Muscles Strength 5/5 in bilateral upper extremities , 4/5 in left lower extremities , limited exam over the right lower extremity due to pain Sensation to light touch grossly present throughout Cranial nerves II-XII grossly intact on the right side, with CN VII palsy on the right side. Results CBC & Chem 7: 08/01/22 22:32 08/01/22 22:32 Labs: Abnormal Lab Results - Last 24 Hours (Table) 08/01/22 08/01/22 Range/Units 22:32 22:32 RBC 3.40 L (3.80-5.40) m/uL Hgb 9.7 L (11.4-16.0) gm/dL Hct 28.7 L (34.0-46.0) % RDW 17.5 H (11.5-15.5) % Potassium 3.2 L (3.5-5.1) mmol/L Chloride 110 H (98-107) mmol/L Carbon Dioxide 20 L (22-30) mmol/L Creatinine 0.37 L (0.52-1.04) mg/dL Glucose 69 L (74-99) mg/dL Calcium 7.3 L (8.4-10.2) mg/dL AST 73 H (14-36) U/L ALT 94 H (4-34) U/L Alkaline Phosphatase 179 H (38-126) U/L Total Protein 5.3 L (6.3-8.2) g/dL Albumin 2.7 L (3.5-5.0) g/dL Assessment and Plan Assessment: 47 year old female presented with right hip pain , I discussed the case with ED doc found to have right hip fracture, and possible right breast cancer with mets. to the the spine and ribs , I accepted the admission for pain control , orthopedic and oncology evaluation , with anticipated length of stay < [address] findings right breast malignancy with diffuse metastatic disease to both the right lower neck , right axilla , and right breast lymphatics. osseous metastatic disease bilatereal pleural effusions, scattered pulmonary nodules T3 fracture pathologic fracture of the right proximal femur left rib 7 and right rib 7 and 8 fractures left ovarian cyst metastatic right breast cancer to the spine, ribs, and pathologic fracture of the right hip await oncology and orthopedic evaluation pain control with morphine PRN IVP 4 mg supportive care blood work reviewed showed Anemia Hgb 9.7 possibly chronic , no baseline hgb to compare denies GI bleeding continue to monitor hypokalemia K 3.2 replace PO follow up levels renal function unremarkable with BUN 13 cr 0.37 slightly elevated liver enzymes AST 73, ALT 94 ALK phos 179 continue to monitor dvt ppx heparin sc tid 5000 units full code
[2022-08-02] MEDS ORDERED: POTASSIUM CHLORIDE ER 20 MEQ TAB.ER PO STA (03:36)
[2022-08-02] MEDS ORDERED: ENOXAPARIN 40 MG/0.4 ML SYRINGE SQ SCH (09:00)
--- NOTE | 2022-08-02 09:52 | P.CNOR ---
History of Present Illness - [facility] Consult date: 08/02/22 Consult reason: fracture (Right hip pathologic fracture) History of present illness: The patient is a 47 y/o female with a past medical history of diabetes mellitus, who presented to the ER last night for a right hip fracture. She had an outpatient x-ray that revealed a fracture and she was sent to the ER for further evaluation and care. The patient's family states her right hip pain started in December 2021 when was evaluated in an urgent care. No fracture was seen at that time on x-ray and she was referred to orthopedics for further care. The patient did not have insurance at that time and she did not follow up. Over the past few months, her back has been very painful and she was seen in the ER and sent home. She has lost 70 pounds over the last few months from lack of appetite due to pain. Her hip pain as continued and she saw a new primary care physician and x-rays were ordered. CT of the hip, head, neck, chest, abdomen, and pelvis was ordered upon arrival in the ER yesterday. Metastatic disease was found that appears to be breast origin. Orthopedics was consulted for further evaluation and care of her right hip fracture. She was admitted to medicine with oncology on consult. Review of Systems Constitutional: Reports fatigue, Denies chills, Denies fever Cardiovascular: Denies chest pain, Denies shortness of breath Respiratory: Denies cough Gastrointestinal: Denies diarrhea, Denies nausea, Denies vomiting Musculoskeletal: right: hip pain, hip stiffness, hip swelling Past Medical History Past Medical History: Diabetes Mellitus, Thyroid Disorder History of Any Multi-Drug Resistant Organisms: None Reported Past Surgical History: Section Past Psychological History: ADD/ADHD Smoking Status: Never smoker Past Alcohol Use History: None Reported Past Drug Use History: None Reported Medications and Allergies Home Medications Medication Instructions Recorded Confirmed Type No Known Home Medications 08/02/22 08/02/22 History Allergies Allergy/AdvReac Type Severity Reaction Status Date / Time No Known Allergies Allergy Verified 08/02/22 08:03 Physical Examination The patient is a 47 year-old female in no acute distress. She is alert and oriented 3. The patient's head is normocephalic, atraumatic. Exam of the bila teral upper extremities reveal no obvious deformities or wounds. Exam of the left lower extremity reveals no deformity or wounds. No pain upon range of motion of the left leg. Exam of the right lower extremity reveals severe guarding to the right hip. There is pain to palpation to the lateral hip. There is pain to external and internal rotation of the left hip. Calf is soft and nontender. She is able to wiggle his toes. Circulatory status is intact. Results CT of the right hip reveals a pathologic femoral neck fracture. - Labs Labs: Abnormal Lab Results - Last 24 Hours (Table) 08/01/22 08/01/22 Range/Units 22:32 22:32 RBC 3.40 L (3.80-5.40) m/uL Hgb 9.7 L (11.4-16.0) gm/dL Hct 28.7 L (34.0-46.0) % RDW 17.5 H (11.5-15.5) % Potassium 3.2 L (3.5-5.1) mmol/L Chloride 110 H (98-107) mmol/L Carbon Dioxide 20 L (22-30) mmol/L Creatinine 0.37 L (0.52-1.04) mg/dL Glucose 69 L (74-99) mg/dL Calcium 7.3 L (8.4-10.2) mg/dL AST 73 H (14-36) U/L ALT 94 H (4-34) U/L Alkaline Phosphatase 179 H (38-126) U/L Total Protein 5.3 L (6.3-8.2) g/dL Albumin 2.7 L (3.5-5.0) g/dL H & H 08/01/22 Range/Units 22:32 Hgb 9.7 L (11.4-16.0) gm/dL Hct 28.7 L (34.0-46.0) % Result Diagrams: 08/01/22 22:32 08/01/22 22:32 Assessment and Plan (1) Fracture of right hip Current Visit: Yes Status: Acute Code(s): S72.001A - FRACTURE OF UNSP PART OF NECK OF RIGHT FEMUR, INIT SNOMED Code(s): 022774110 (2) Metastasis to bone Current Visit: Yes Status: Acute Code(s): C79.51 - SECONDARY MALIGNANT NEOPLASM OF BONE SNOMED Code(s): 66762022 (3) Diabetes Current Visit: Yes Status: Acute Code(s): E11.9 - TYPE 2 DIABETES MELLITUS WITHOUT COMPLICATIONS SNOMED Code(s): 27865598 (4) Obesity Current Visit: Yes Status: Acute Code(s): E66.9 - OBESITY, UNSPECIFIED SNOMED Code(s): 052631656 Plan: The clinical and x-ray findings were discussed with the patient and family at the bedside. The case was discussed with Dr. Castillo at length. This type of fracture needs to be fixed to facilitate ambulation and pain relief. The patient will be NPO at midnight tonight and will undergo a right hip ORIF with long gamma nail tomorrow to stabilize the fracture. We will plan on a bone biopsy of the area as well. Continue pain control and bed rest at this time. She also has a T3 spinous process fracture that was discussed with Dr. Sepulveda. No further treatment for her spine from a surgical aspect is needed at this time. Further workup for her metastatic cancer will be completed by oncology. We will await pre-op medical clearance from internal medicine.
--- NOTE | 2022-08-02 16:48 | P.PN ---
Progress Note - Text Progress Note Date: 08/02/22 Imaging was reviewed. The pathology seems to extend both into the acetabulum and into the femoral shaft. I am concerned that IMN fixation or a cemented chase will not be adequate treatment. We will get full length femur films but this case is best treated by an payroll and benefits specialist who is familiar with treated such extensive metastasis. Spoke with the primary care team and we will start the transfer process to a tertiary care facility.
--- NOTE | 2022-08-02 18:48 | XR ---
EXAMINATION TYPE: XR femur RT DATE OF EXAM: 08/02/2022 6:02 PM INDICATION: Patient age:Female; 47 years old; Reason for study: hip fracture and mets; COMPARISON: Imaging 07/31/2022., 08/01/2022. TECHNIQUE: The right femur was examined in Frontal and lateral projections. FINDINGS: Redemonstration of various angulated proximal right femur fracture with mild appearance of the osseous structures of the proximal right femur and pelvis. The right distal femur demonstrates mi ld osteoarthrosis changes of the knee with out evidence of heterogenous bone appearance. No additiona l fractures visualized. IMPRESSION: 1. Varus angulated proximal right femur fracture as seen on prior imaging. No new fractures. 2. Osteoarthrosis of the right knee.
--- NOTE | 2022-08-02 18:56 | P.DS ---
Providers Date of admission: 08/02/22 01:34 Expected date of discharge: 08/02/22 Attending physician: Brandie Ceron MD Consults: 08/02/22 01:31 Consult Physician Urgent Consulting Provider: Chetan Hubbard Consult Reason/Comments: suspected breast cancer with mets Do you want consulting provider notified?: Yes Consult Physician Urgent Consulting Provider: Nesha Castillo Consult Reason/Comments: right pathologic hip fracture Do you want consulting provider notified?: Already Contacted 08/02/22 14:02 Consult Physician Routine Consulting Provider: Davidson Archer Consult Reason/Comments: T3 and right femur pathological fx, eval for XRT Do you want consulting provider notified?: Already Contacted Primary care physician: Vance Machuca MD Hospital Course: Discharge Diagnosis: Acute right femoral fracture, pathologic Palpable breast cancer with metastatic disease Pulmonary nodules Bilateral pleural effusions T3 posterior spinous process fracture Diabetes, was not on medications at home History of thyroid disorder, not on medications at home Obesity with BMI 54.1 Hospital Course: She is a 47-year-old female with a past medical history of diabetes, thyroid disorder, and obesity presented to the hospital direction of her primary care physician due to an abnormal outpatient x-ray. Patient had completed an outpa tient x-ray of her right hip which demonstrated an acute fracture and she was therefore directed to the ER. In the ER she underwent an extensive evaluation. CT of the right hip confirmed a right femoral neck fracture, multiple lucencies seen at the fracture site, slight varus angulation. Diffuse heterogeneous osseus appearance with history of malignancy. CT chest abdomen and pelvis demonstrated right breast malignancy with diffuse metastatic disease to both the lower right neck, right axilla possibly right breast lymphatics. Diffuse metastatic disease with bilateral pleural effusions suspicious for pleural metastatic disease and scattered pulmonary nodules. There is also fractured through the T3 posterior prominence process, suspected rib 7 on the left and ribs 7 and 8 on the right fractures which may be subacute, and a left ovarian cyst. She underwent CT head and neck which was negative for any acute process but redemonstrated the known neck adenopathy and T3 spinous process fracture. She was admitted to medicine with consult to orthopedic surgery, oncology, and radiation oncology. She was started on pain medications, Lovenox, IV fluids, and Zofran. She was seen by oncology who didn't recommend further inpatient versus outpatient testing for biopsy and cancer tumor markers. She was seen by radiation oncology felt she likely will need radiation to the right hip fracture after surgery has been completed. Plan had initially been to obtain an MRI of that right hip after surgery, and a nuclear medicine bone scan. However after evaluation by orthopedic surgery that she would be best managed by an orthopedic oncologist. [facility] was contacted and the patient was accepted for transfer. Admitting physician is Dr. Cathryn Raya. Family updated on plan of care. For physical Exam see H and P same date. A total of 120 minutes of time were spent preparing this complex discharge summary. Patient was discharged on 08/02/22. This dictation was prepared using [employer] voice recognition software. Though every attempt is made to correct errors during during dictation some may still exist. Plan - Discharge Summary New Discharge Prescriptions: No Action No Known Home Medications Discharge Medication List No Known Home Medications 08/02/22 [History] Follow up Appointment(s)/Referral(s): Vance Machuca MD [Primary Care Provider] - 1-2 days
[2022-08-02 19:51] VITALS: BP 169/90; PULSE 71; RESP 16; TEMP 99.4
--- NOTE | 2022-08-02 21:02 | P.CONS ---
History of Present Illness - Reason for Consult Consult date: 08/02/22 back pain, right hip pain Requesting physician: Chetan Hubbard - Chief Complaint back/right hip pain - History of Present Illness The patient is a 47-year-old female with a history of progressive right hip pain dating back to January 2022. Imaging workup revealed a nondisplaced pathologic fracture of the right femoral neck. The patient presented to the emergency room, and subsequent imaging revealed a picture suspicious for likely metastatic breast cancer with significant bone metastases. The patient reports she first developed right-sided hip pain this past fall. She states that at the time, she did not have insurance and did not have an adequate workup. The right-sided hip pain continued to worsen, and within the past few months the patient started developing pain in the middle of her back as well. She presented to a new primary care physician Dr. Sven marie, who ordered x-rays. Plain films of the right hip revealed a nondisplaced fracture of the right femoral neck, likely pathologic in nature. The patient was instructed to proceed to the ER. On August 01, she underwent a computed tomography scan of the right hip which revealed an acute pathologic fracture of the right femoral neck with evidence of osseous metastatic disease. She went on to have a computed tomography scan of the chest, abdomen and pelvis. This revealed bilateral pleural effusions, right greater than left with scattered subcentimeter pulmonary nodules. Note was made of a large right-sided breast mass with diffuse skin thickening, the mass measuring up to 6.9 cm with associa reanna abnormal right axillary, supraclavicular and internal mammary adenopathy. There is diffuse bony metastatic disease appreciated on imaging. The patient was evaluated by orthopedic surgery, with plans for a right hip ORIF which was initially scheduled for tomorrow. However, there is now a possibility of transferred to a tertiary facility for orthopedic oncology evaluation. The patient actually states that the right hip pain at this time is less severe than the mid back pain. She had been taking [id number] anti-inflammatory such as Advil and Tylenol with minimal relief. She states that the back pain is at times greater than 10 out of 10. The candy worse with movement, but tends to her even at rest. Secondary to the progressive right hip pain, the patient has been ambulating with a walker at home. 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 She states this seems to have improved, but has waxed and wane somewhat. She reports no significant headaches, nausea or vomiting. She reports no saddle anesthesia or loss of bladder/bowel control Review of Systems All systems: negative Constitutional: Denies chills, Denies fever Eyes: denies blurred vision, denies pain Ears, nose, mouth and throat: Denies headache Breasts: right: masses Cardiovascular: Denies chest pain Respiratory: Denies cough Gastrointestinal: Denies change in bowel habits Genitourinary: Denies dysuria, Denies hematuria Musculoskeletal: Reports as per HPI Integumentary: Denies rash Neurological: Denies confusion, Denies headaches, Denies seizures Psychiatric: Denies anxiety Endocrine: Denies fatigue, Denies weight change Past Medical History Past Medical History: Diabetes Mellitus, Thyroid Disorder History of Any Multi-Drug Resistant Organisms: None Reported Past Surgical History: Section Past Anesthesia/Blood Transfusion Reactions: No Reported Reaction Past Psychological History: ADD/ADHD Smoking Status: Never smoker Past Alcohol Use History: None Reported Past Drug Use History: None Reported Medications and Allergies Home Medications Medication Instructions Recorded Confirmed Type No Known Home Medications 08/02/22 08/02/22 History Allergies Allergy/AdvReac Type Severity Reaction Status Date / Time No Known Allergies Allergy Verified 08/02/22 08:03 Physical Exam Vitals: Vital Signs Temp Pulse Pulse Resp BP BP Pulse Ox 08/02/22 19:50 99.4 F 71 16 169/90 96 08/02/22 14:40 98.3 F 68 15 145/76 94 L 08/02/22 12:35 76 18 147/65 96 08/02/22 06:00 98 F 61 17 131/61 97 08/02/22 02:31 65 18 161/73 95 08/02/22 00:20 73 18 157/83 97 08/01/22 22:37 73 18 149/72 94 L Intake and Output 08/02/22 08/02/22 08/02/22 06:59 14:59 22:59 Intake Total 260 Balance 260 Intake: Intake, IV Titration 260 Amount Sodium Chloride 0.9% 1, 260 000 ml @ 130 mls/hr IV . [id number] [facility] Rx#:[id number] - Constitutional General appearance: obese - EENT Eyes: EOMI, PERRLA ENT: hearing grossly normal - Neck Neck: no lymphadenopathy - Respiratory Respiratory: bilateral: diminished - Cardiovascular Rhythm: regular - Gastrointestinal General gastrointestinal: no organomegaly, soft, no tenderness - Integumentary Integumentary: no calor - Neurologic Neurologic: CNII-XII intact - Musculoskeletal Musculoskeletal: strength equal bilaterally - Psychiatric Psychiatric: A&O x's 3, appropriate affect Results CBC & Chem 7: 08/01/22 22:32 08/01/22 22:32 Labs: Abnormal Lab Results - Last 24 Hours (Table) 08/01/22 08/01/22 Range/Units 22:32 22:32 RBC 3.40 L (3.80-5.40) m/uL Hgb 9.7 L (11.4-16.0) gm/dL Hct 28.7 L (34.0-46.0) % RDW 17.5 H (11.5-15.5) % Potassium 3.2 L (3.5-5.1) mmol/L Chloride 110 H (98-107) mmol/L Carbon Dioxide 20 L (22-30) mmol/L Creatinine 0.37 L (0.52-1.04) mg/dL Glucose 69 L (74-99) mg/dL Calcium 7.3 L (8.4-10.2) mg/dL AST 73 H (14-36) U/L ALT 94 H (4-34) U/L Alkaline Phosphatase 179 H (38-126) U/L Total Protein 5.3 L (6.3-8.2) g/dL Albumin 2.7 L (3.5-5.0) g/dL CT scan - abdomen: report reviewed, image reviewed CT scan - chest: report reviewed, image reviewed CT scan - pelvis: report reviewed, image reviewed Assessment and Plan Assessment: The patient is a 47-year-old female with a history of progressive right hip pain dating back to January 2022. Imaging workup revealed a nondisplaced pathologic fracture of the right femoral neck. The patient presented to the emergency room, and subsequent imaging revealed a picture suspicious for likely metastatic breast cancer with significant bone metastases. Plan: 1. Right hip pathologic fracture: The patient has been assessed by orthopedics locally and recommended surgical stabilization. However, she is now likely to be transferred to a tertiary care facility for evaluation by orthopedic o ncology. I discussed with the patient and her family that at the time of this surgery, pathology should be obtained to confirm underlying malignancy. I discussed that the patient would likely require postoperative radiotherapy to the right hip following surgical stabilization after allowing for adequate healing. 2. Mid-back pain: Although note was made of a fracture of the posterior elements of T3, upon review the patient's imaging she has scattered disease throughout the thoracic spine that could explain her pain. I discussed with the patient my recommendation that she undergo an MRI of the thoracic spine considering the severe nature of her pain. She does not appear to have any symp toms of spinal canal compromise at this time. As the patient is unlikely to have surgical intervention for the spinal metastasis, I discussed the palliative course of radiotherapy may also prove beneficial. I explained that it does take some time for the full palliative effect of radiation to be realized, and that we would need to work on adequate pain control prior to potential discharge. 3. Likely underlying metastatic breast cancer: I discussed with the family that we would need a biopsy to confirm this, but her clinical picture is suspicious for metastatic breast cancer. I explained that based on the subtypes of breast cancer, her treatment may be very different and we will have to await the final pathology. I explained that while radiotherapy may help to palliate some of the areas of bone disease, her primary treatment will involve systemic therapy ultimately. Time: I spent 0 minutes with this patient, of which greater than 50% of that time was spent counseling, coordinating care, and reviewing the risks, benefits, and all potential complications of radiation.
--- NOTE | 2022-08-03 09:27 | P.CONS ---
History of Present Illness - Reason for Consult Consult date: 08/02/22 suspected breast cancer Requesting physician: Chichi Fitzpatrick - Chief Complaint hip and back pain - History of Present Illness Patient is a 47-year-old female with a significant history of diabetes and obesity. We were consulted for abnormal findings on hip x-ray concerning for metastatic disease. Patient reports having ongoing right groin pain and right hip pain over the last approximate 6 months. She states she had an x-ray of right hip in February 2022 which showed arthritis. Patient states she been having difficulty ambulating due to right lower extremity pain. She also reports mid back pain that has been progressing over the last 6 months. Patient also reports that in October 2021 she began to notice a lump of the right breast but believed it was an abscess and states that she felt like it was improving so never sought further evaluation. Patient reports last mammogram was approximately 5 years ago which showed a benign mass. Pt reports 70 lb weight loss over the last 7 months, but attributes this to cutting out pop and eating less. Denies night sweats. Upon presentation to the ER CT of right hip showed acute pathological fracture of the proximal right femur basicervical portion of the femoral neck. Multiple lucencies are seen throughout the fracture site. Slight varus angulation. Diffuse heterogeneous osseous appearance. CT head and neck revealed no acute intracranial process. T3 posterior element fracture with minimal displacement. Diffuse heterogeneous appearance of the osseous structures. Right lower neck lymphadenopathy. CT chest abdomen pelvis revealed findings compatible with right breast malignancy with diffuse metastatic disease to both the right lower neck, right axilla, probable right breast lymphatics, diffuse osseous metastatic disease, bilateral pleural effusions suspicious for pleural metastatic disease and scattered pulmonary nodules suspicious for metastatic disease. Right breast mass with possible areas of central necrosis measuring up to 6.9 x 6.2 x 5.8 cm, skin thickening of the right breast measur ing up to 10 mm in thickness. Fracture through the T3 posterior spinous process fracture. Pathological fracture of the right proximal femur. Suspected left rib and right rib 7 and 8 fractures which may be subacute. Review of Systems 10 point ROS is negative except as stated in HPI Past Medical History Past Medical History: Diabetes Mellitus, Thyroid Disorder History of Any Multi-Drug Resistant Organisms: None Reported Past Surgical History: Section Past Psychological History: ADD/ADHD Smoking Status: Never smoker Past Alcohol Use History: None Reported Past Drug Use History: None Reported Medications and Allergies Home Medications Medication Instructions Recorded Confirmed Type No Known Home Medications 08/02/22 08/02/22 History Allergies Allergy/AdvReac Type Severity Reaction Status Date / Time No Known Allergies Allergy Verified 08/02/22 08:03 Physical Exam Vitals: Vital Signs Temp Pulse Pulse Resp BP BP Pulse Ox 08/02/22 14:40 98.3 F 68 15 145/76 94 L 08/02/22 12:35 76 18 147/65 96 08/02/22 06:00 98 F 61 17 131/61 97 08/02/22 02:31 65 18 161/73 95 08/02/22 00:20 73 18 157/83 97 08/01/22 22:37 73 18 149/72 94 L 08/01/22 18:54 98.2 F 77 18 173/77 97 - Constitutional General appearance: morbidly obese, no acute distress - EENT Eyes: anicteric sclerae, EOMI ENT: hearing grossly normal - Neck no cervical adenopathy palpable, right axially LN palpated - Respiratory Respiratory: right: rales (rales RLL) - Cardiovascular Rhythm: regular Heart sounds: normal: S1, S2 Abnormal Heart Sounds: no systolic murmur, no diastolic murmur, no rub, no S3 Gallop, no S4 Gallop, no click, no other - Gastrointestinal General gastrointestinal: soft, no tenderness - Integumentary Integumentary: no cyanotic, no rash - Neurologic grossly intact - Musculoskeletal Musculoskeletal: strength equal bilaterally - Psychiatric Psychiatric: A&O x's 3, appropriate affect, intact judgment & insight Large right breast mass on inferior portion of breast with skin thickening and nipple retraction noted. No nipple discharge present. No mass palpated in left breast Results CBC & Chem 7: 08/01/22 22:32 08/01/22 22:32 Labs: Abnormal Lab Results - Last 24 Hours (Table) 08/01/22 08/01/22 Range/Units 22:32 22:32 RBC 3.40 L (3.80-5.40) m/uL Hgb 9.7 L (11.4-16.0) gm/dL Hct 28.7 L (34.0-46.0) % RDW 17.5 H (11.5-15.5) % Potassium 3.2 L (3.5-5.1) mmol/L Chloride 110 H (98-107) mmol/L Carbon Dioxide 20 L (22-30) mmol/L Creatinine 0.37 L (0.52-1.04) mg/dL Glucose 69 L (74-99) mg/dL Calcium 7.3 L (8.4-10.2) mg/dL AST 73 H (14-36) U/L ALT 94 H (4-34) U/L Alkaline Phosphatase 179 H (38-126) U/L Total Protein 5.3 L (6.3-8.2) g/dL Albumin 2.7 L (3.5-5.0) g/dL Comments: CT hip reviewed CT scan - abdomen: report reviewed CT scan - chest: report reviewed CT Scan - head: report reviewed CT scan - pelvis: report reviewed Assessment and Plan (1) Breast mass, right Status: Acute Priority: High Code(s): N63.10 - UNSPECIFIED LUMP IN THE RIGHT BREAST, UNSPECIFIED QUADRANT SNOMED Code(s): 09733899 (2) Metastasis to bone Status: Acute Priority: High Code(s): C79.51 - SECONDARY MALIGNANT NEOPLASM OF BONE SNOMED Code(s): 94382292 Plan: Breast mass/metastasis to bone: -CT of right hip showed acute pathological fracture of the proximal right femur basicervical portion of the femoral neck. Multiple lucencies are seen throughout the fracture site. Diffuse heterogeneous osseous appearance. CT head and neck revealed no acute intracranial process. T3 posterior element fracture with minimal displacement. Diffuse heterogeneous appearance of the osseous structures. Right lower neck lymphadenopathy. CT chest abdomen pelvis revealed findings compatible with right breast malignancy with diffuse metastatic disease to both the right lower neck, right axilla, probable right breast lymphatics, diffuse osseous metastatic disease, bilateral pleural effusions suspicious for pleural metastatic disease and scattered pulmonary nodules suspicious for metastatic disease. Right breast mass with possible areas of central necrosis measuring up to 6.9 x 6.2 x 5.8 cm, skin thickening of the right breast measuring up to 10 mm in thickness. Fracture through the T3 posterior spinous process fracture. Pathological fracture of the right proximal femur. Suspected left rib and right rib 7 and 8 fractures which may be subacute. Findings are highly concerning for metastatic disease -Bone scan for further staging ordered -CA 15-3 and CA 27.29 ordered -Rad/onc consulted, spoke with Dr. Julian regarding case -Spoke with ortho DISPLAY COORDINATOR, plan for right femur surgery tomorrow, will obtain biopsy. If biopsy is unable to be obtained or inconclusive will proceed with biopsy of right breast -Discussed findings and plan with patient and family, patient is agreeable to proceed with biopsy and further testing. Will schedule f/u in clinic upon discharge Dr attests: I have performed H&P and developed impression and plan of care for patient, discussed with dictator. I agree with dictated note, documented as a scribe.
== END 2022-08-02 21:00 | disposition short-term general hospital (02) | DRG 343 ==
LOC: EC 18:06 → 5NMEDONC 08-02 01:34
PROVIDERS: ADMIT Internal Medicine; ATTEND Internal Medicine
DX: M84.451A Pathological fracture, right femur, initial encounter for fracture (principal); C77.3 Secondary and unspecified malignant neoplasm of axilla and upper limb lymph nodes; C79.51 Secondary malignant neoplasm of bone; C78.02 Secondary malignant neoplasm of left lung; C78.01 Secondary malignant neoplasm of right lung; C78.2 Secondary malignant neoplasm of pleura; C50.911 Malignant neoplasm of unspecified site of right female breast; Z68.43 Body mass index [BMI] 50.0-59.9, adult; E11.9 Type 2 diabetes mellitus without complications; M84.58XA Pathological fracture in neoplastic disease, other specified site, initial encounter for fracture; D64.9 Anemia, unspecified; E66.9 Obesity, unspecified; R63.0 Anorexia; G89.3 Neoplasm related pain (acute) (chronic); E87.6 Hypokalemia; G51.0 Bell's palsy; E07.9 Disorder of thyroid, unspecified; N83.202 Unspecified ovarian cyst, left side; M17.11 Unilateral primary osteoarthritis, right knee; F90.9 Attention-deficit hyperactivity disorder, unspecified type; R74.8 Abnormal levels of other serum enzymes; R26.2 Difficulty in walking, not elsewhere classified; Z79.52 Long term (current) use of systemic steroids; Z79.899 Other long term (current) drug therapy; Z59.7 Insufficient social insurance and welfare support
CPT/HCPCS: 36415; 70450; 71260; 72125; 74177; 80053; 85025; 96361; 96372; 96374; 96375; 96376; 99285